=== PATIENT | male | born 1960 | race Caucasian/White ===

== ENCOUNTER 2021-10-13 18:25 | Emergency (ER) | payer OTHER, SELFPAY ==
[2021-10-13 18:31] VITALS: BP 136/91; PULSE 79; RESP 18; TEMP 36.1; O2SAT 98
[2021-10-13 18:38] VITALS: BP 136/91
--- NOTE | 2021-10-13 18:39 | ED.EYEPROB ---
HPI - Eye Problem General Chief complaint: Eye Problems Stated complaint: left eye swollen and irritated Time Seen by Provider: 10/13/21 18:40 Source: patient Mode of arrival: ambulatory Limitations: no limitations History of Present Illness HPI Narrative: Mr. Bui is a 61-year-old male patient presenting to the clinic today with complaints of left eye watering and swelling to the conjunctiva. He reports that this has been ongoing for approximately a week. He is is here for work from [place]. He denies any injury to the eye or denies any knowledge of getting anything into his eye. Related Data Home Medications Medication Instructions Recorded Confirmed atorvastatin 10 mg tablet 1 tablet PO DAILY 10/13/21 10/13/21 dextran 70-hypromellose (PF) 0.1 1 drp EACH EYE DAILY 10/13/21 10/13/21 %-0.3 % eye drops in a dropperette (GenTeal Tears Moderate (PF)) fenofibrate nanocrystallized 145 1 tablet PO DAILY 10/13/21 10/13/21 mg tablet Allergies Allergy/AdvReac Type Severity Reaction Status Date / Time No Known Allergies Allergy Verified 10/13/21 18:35 Review of Systems Review of Systems: Pertinent positives per HPI. Patient denies any fever, chills, rash, headache, visual changes, dizziness, cough, runny nose, sore throat, shortness of breath, chest pain, palpitations, nausea, vomiting, diarrhea, constipation, abdominal pain, or any urinary issues. PMFSH Comments At the time of my signature, I reviewed and agree with the nursing past medical, surgical, social, and family history. There is no relevant family history pertinent to the patient complaint. Exam Narrative: General: Well-developed, well nourished, in no apparent distress Head: Normocephalic, atraumatic Eyes: Pupils equally round and reactive to light bilaterally, EOM intact, right sclera and conjunctive clear, left sclera and conjunctive a injected with watery discharge, patient reporting itchy eye, right lids normal, left lids mildly swelling. Cardio: Regular rate and rhythm, s1 and s2 normal, no murmur appreciated. Resp: Clear to auscultation bilaterally anteriorly and posteriorly, no rhonchi, rales, wheezing or rubs Course Course Emergency Course: Portions of this record may have been created with voice recognition software. Level of Care: Express Care Visit Vital Signs Vital signs: Vital Signs Temperature 36.1 C L 10/13/21 18:31 Pulse Rate 79 10/13/21 18:31 Respiratory Rate 18 10/13/21 18:31 Blood Pressure 136/91 H 10/13/21 18:31 Pulse Oximetry 98 10/13/21 18:31 Oxygen Delivery Room Air 10/13/21 18:31 Temperature 36.1 C L 10/13/21 18:31 Pulse Rate 79 10/13/21 18:31 Respiratory Rate 18 10/13/21 18:31 Blood Pressure 136/91 H 10/13/21 18:38 Pulse Oximetry 98 10/13/21 18:31 Oxygen Delivery Room Air 10/13/21 18:31 Vital signs reviewed MDM - Eye Problem MDM Narrative Medical decision making narrative: At the time of assessment patient is resting comfortably in the exam table. He has itchy watery eye with inflamed conjunctive and sclera to the left eye. I suspect that the patient has allergic conjunctivitis as he denies any injury or potential foreign body in the right eye. No foreign body was visualized. I will send him a prescription for some TobraDex just to cover any superficial infection. Supportive measures were discussed and patient voiced understanding of discharge instructions and agrees with the treatment plan Differential Diagnosis Differential diagnosis: Likely corneal abrasion, conjunctivitis, acute iritis and other Discharge Plan Discharge Clinical Impression: Acute allergic conjunctivitis Qualifiers: Laterality: left Qualified Code(s): H10.12 - Acute atopic conjunctivitis, left eye Patient Disposition: Home, Self-Care Condition: Stable Instructions: Antibiotic Form, Conjunctivitis (ED) Additional Instructions: TobraDex eyedrops as prescribed May use cool carissa
== END 2021-10-13 18:52 | disposition home or self-care (01) ==
PROVIDERS: Emergency Provider Nurse Practitioner Family
DX: H10.12 Acute atopic conjunctivitis, left eye (principal); E78.00 Pure hypercholesterolemia, unspecified
CPT/HCPCS: 99213; G0463